=== PATIENT | female | born 1990 | race Caucasian/White ===

== ENCOUNTER 2018-12-06 11:12 | Emergency (ER) | payer OTHER ==
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
[2018-12-06] MEDS ORDERED: DIPHTH/TETANUS/ACEL. PERTUSSIS IM ONLY ONE (12:20)
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
[2018-12-06 13:36] VITALS: BP 117/66
== END 2018-12-06 13:33 | disposition home or self-care (01) ==
LOC: ER 11:35
DX: S20.212A Contusion of left front wall of thorax, initial encounter (principal); S00.83XA Contusion of other part of head, initial encounter; V49.60XA Unspecified car occupant injured in collision with unspecified motor vehicles in traffic accident, initial encounter
CPT/HCPCS: 70150; 71046; 90471; 90715; 99284